=== PATIENT | male | born 1950 | race Caucasian/White ===

== ENCOUNTER → 2017-06-02 | Outpatient (CLI) | payer MEDICARE ==
[~2017-06-02] MED LIST: PRED10 PO
== END ==
LOC: HEDF 19:49
DX: T20.24XA Burn of second degree of nose (septum), initial encounter (principal); T20.26XA Burn of second degree of forehead and cheek, initial encounter; E87.2 Acidosis; X08.8XXA Exposure to other specified smoke, fire and flames, initial encounter; Z99.81 Dependence on supplemental oxygen
CPT/HCPCS: A0431; A0436